=== PATIENT | female | born 1960 | race Caucasian/White ===

== ENCOUNTER → 2022-08-08 09:53 | Outpatient (BNVA) | payer OTHER, SELFPAY | PROVIDERS: Family Provider Family Medicine; PCP Nurse Practitioner Family; Visit Provider Urology | DX: R31.29 Other microscopic hematuria (principal) | CPT/HCPCS: 87086; 88112 ==

== ENCOUNTER 2022-09-03 09:15 | Outpatient (CLI) | payer OTHER, SELFPAY ==
[2022-09-03] MEDS: iohexol 350 mg/mL 500 mL Btl (per mL) IV (09:38)
[2022-09-03 10:07] LABS: Blood Urea Nitrogen 15 mg/dL (8-23); Glomerular Filtration Rate 72.7 mL/min (90-130)
--- NOTE | 2022-09-03 11:30 | CT_ITS ---
WS: [id number] CT ABDOMEN AND PELVIS WITH AND WITHOUT CONTRAST HISTORY: Microscopic Hematuria TECHNIQUE: Unenhanced 5 mm axial imaging first performed through the abdomen. Post contrast imaging t hrough the abdomen and pelvis. Oral contrast has been provided. Sagittal and coronal reformats are s ubmitted. All CT scans at [facility] use at least one of these dose optimization techniques: automated exposure control; mA and/or kV adjustment per patient size (includes targeted exams where d ose is matched to clinical indication); or iterative reconstruction. CONTRAST: Omnipaque 350; 95 mL IV. DLP: 1463.60 mGy.cm COMPARISON: None available. There are small micronodules at the RIGHT lung base. No mass. Heart size is normal. Small hiatal lissette ia. RIGHT kidney: 10.4 cm in length. No perinephric stranding. Cortical 3 mm calcification mid kidney. No calcifications in the renal pelvis or ureter. No hydronephrosis. No renal mass. No uroepithelial les ions. LEFT kidney: 10.8 cm in length. No perinephric stranding. Exophytic 7 mm mass from the anterior infer ior LEFT kidney is indeterminate. Due to the small size cannot accurately determine if this mass enha nces. Does not appear to enhance. No calcifications in the renal pelvis or ureter. No hydronephrosis. No renal mass. No uroepithelial lesions. Urinary bladder: No enhancing lesions within the bladder wall. No filling defects. Negative liver, spleen and pancreas. No adrenal mass. Normal portal vein. No bile duct dilatation. Mi ld atherosclerosis aorta. No GI tract obstruction. No adenopathy or ascites. Slight increase in the lumbar lordosis. CT/CT abdomen pelvis wo/w [id number] IMPRESSION: 1. No renal obstruction or uroepithelial lesions. 2. 7 mm exophytic mass from the lower pole LEFT kidney. Cannot determine if th is mass actually enhances post IV contrast injection. Consider six-month CT fol low-up versus MRI with and without contrast of the kidneys. 3. No bladder lesions.
== END 2022-09-03 09:16 | disposition home or self-care (01) ==
LOC: RAD 09:17
PROVIDERS: PCP Nurse Practitioner Family; Visit Provider Urology
DX: R31.29 Other microscopic hematuria (principal)
CPT/HCPCS: 74178; 82565; 84520; Q9967

== ENCOUNTER → 2022-09-23 13:24 | Outpatient (BNVA) | payer OTHER, SELFPAY | PROVIDERS: PCP Nurse Practitioner Family; Visit Provider Urology | DX: R31.29 Other microscopic hematuria (principal); N28.89 Other specified disorders of kidney and ureter | CPT/HCPCS: 81003 ==

== ENCOUNTER → 2025-07-19 08:02 | Outpatient (BNVA) | payer OTHER, SELFPAY | PROVIDERS: PCP Family Medicine; Visit Provider Family Medicine | DX: Z00.00 Encounter for general adult medical examination without abnormal findings (principal) | CPT/HCPCS: 80053; 80061; 85025; 86140 ==